=== PATIENT | male | born 1980 | race Caucasian/White ===

== ENCOUNTER → 2017-02-06 | Outpatient (CLI) | payer BC ==
--- NOTE | 2017-02-07 09:32 | MR ---
EXAMINATION: MRI of the right knee HISTORY: Injury COMPARISON: Radiographs dated 02/02/2017 TECHNIQUE: Multiplanar and multisequence images obtained of the right knee without contrast. FINDINGS: The patellar and quadriceps tendons appear intact. There is increased signal within the AC L, which overall appears indistinct and is not optimally characterize due to motion artifact. The PC L is intact. The medial and lateral menisci are intact. The proximal medial collateral ligament is t orn. The lateral collateral ligament complex is grossly preserved. There is mild lateral subluxation of the patella with a full-thickness tear of the medial retinaculum. There is prominent adjacent montoya bcutaneous edema and a small underlying joint effusion. There is a collection of fluid anterior to t he patellar tendon. There is a trace Molina's cyst. No suspicious bone marrow signal. The articular s urfaces are grossly preserved. IMPRESSION: 1. Full-thickness tear of the medial collateral ligament proximally. 2. Full-thickness tear of the medial retinaculum. 3. Prepatellar bursitis. 4. Probable ACL tear.
== END ==
LOC: MW.MRI 12:01
PROVIDERS: ATTEND Physician Assistant
DX: S89.91XA Unspecified injury of right lower leg, initial encounter (principal); S83.411A Sprain of medial collateral ligament of right knee, initial encounter; M70.41 Prepatellar bursitis, right knee
CPT/HCPCS: 73721-26-RT; 73721-RT